=== PATIENT | male | born 1970 | race Caucasian/White ===

== ENCOUNTER 2018-12-30 10:11 | Emergency (ER) | payer OTHER ==
[~2018-12-30] VITALS: Ht 170.2 cm; Wt 86.4 kg
[2018-12-30] MEDS ORDERED: AUGMENTIN 875 MG TAB PO ONE (10:30)
[2018-12-30] MEDS ORDERED: IBUP80TA PO (10:36)
[2018-12-30] MEDS ORDERED: AUGM875T28 PO (10:36)
[2018-12-30] MEDS ORDERED: ADACEL/BOOSTRIX VACCINE (DIPHTH/PERTUSS/ACELL/TETANUS)0.5ML SYR (90715) IM ONE (10:45)
[2018-12-30] MEDS ORDERED: RABIES VACCINE HUMAN 2.5 INTERNATIONAL UNITS/ML VIAL (90675) IM ONE (11:30)
[2018-12-30 12:03] VITALS: BP 128/95
== END 2018-12-30 12:04 | disposition home or self-care (01) ==
LOC: M ED 10:11
DX: S61.452A Open bite of left hand, initial encounter (principal); W54.0XXA Bitten by dog, initial encounter; Y92.410 Unspecified street and highway as the place of occurrence of the external cause; F90.9 Attention-deficit hyperactivity disorder, unspecified type

== ENCOUNTER 2020-10-02 03:55 | Emergency (ER) | payer OTHER ==
[~2020-10-02 03:55] MED LIST: AUGM875T28 PO; IBUP80TA PO
[2020-10-02 05:24] LABS: BASO % 1.1 % (0.0-1.0); HEMATOCRIT 44.5 % (42.0-52.0); HEMOGLOBIN 15.1 g/dl (13.5-17.5); LYMPH # 0.9 10^3/uL (1.5-5.0); LYMPH % 25.5 % (24.0-44.0); MEAN CORPUSCULAR HEMOGLOBIN 30.6 pg (27.0-33.0); MEAN CORPUSCULAR HGB CONC 33.9 g/dl (32.0-36.5); MEAN CORPUSCULAR VOLUME 90.3 fl (80.0-96.0); MONO # 0.5 10^3/uL (0.0-0.8); MONO % 14.7 % (0.0-5.0); NEUTROPHILS # 2.1 10^3/uL (1.5-8.5); NEUTROPHILS % 58.1 % (36.0-66.0); PLATELET COUNT, AUTOMATED 211 10^3/uL (150-450); RED BLOOD COUNT 4.93 10^6/uL (4.30-6.10); WHITE BLOOD COUNT 3.6 10^3/uL (4.0-10.0)
--- NOTE | 2020-10-02 05:46 | REPVR ---
PROCEDURE INFORMATION: Exam: XR Chest, 1 View Exam date and time: 10/02/2020 4:40 AM Age: 50 years old Clinical indication: Other: Covid +; Additional info: Covid 19 TECHNIQUE: Imaging protocol: XR of the chest Views: 1 view. COMPARISON: No relevant prior studies available. FINDINGS: Lungs: Unremarkable. No consolidation. Pleural space: Unremarkable. No pleural effusion. No pneumothorax. Heart/Mediastinum: Unremarkable. No cardiomegaly. Bones/joints: Unremarkable. IMPRESSION: No acute findings. Electronically signed by: Tani Cardenas On 10/02/2020 05:46:58 AM
[2020-10-02 05:52] LABS: ALBUMIN 3.7 GM/DL (3.2-5.2); ALT/SGPT 38 U/L (12-78); BILIRUBIN,TOTAL 0.4 MG/DL (0.2-1.0); BLOOD UREA NITROGEN 15 MG/DL (7-18); C REACTIVE PROTEIN QUANTITATIV 0.32 MG/DL (0.00-0.30); CALCIUM LEVEL 7.7 MG/DL (8.5-10.1); CARBON DIOXIDE LEVEL 27 MEQ/L (21-32); CHLORIDE LEVEL 105 MEQ/L (98-107); CK-MB VALUE MASS 1.1 NG/ML (<3.6); CPK CREATINE PHOSPHOKINASE 123 U/L (39-308); CREATININE FOR GFR 0.93 MG/DL (0.70-1.30); FERRITIN 284 NG/ML (26-388); GLOMERULAR FILTRATION RATE > 60.0 (>60); GLUCOSE, FASTING 119 MG/DL (70-100); LDH LACTATE DEHYDROGENASE 157 U/L (87-241); MB/CK RELATIVE INDEX 0.89 (< OR =4); POTASSIUM SERUM 3.7 MEQ/L (3.5-5.1); SODIUM LEVEL 135 MEQ/L (136-145); TOTAL PROTEIN 6.7 GM/DL (6.4-8.2); TROPONIN I < 0.02 NG/ML (< 0.10)
[2020-10-02] MEDS ORDERED: ISOVUE-370 76% 100ML VIAL As Ordered ONE (05:54)
--- NOTE | 2020-10-02 07:07 | REPVR ---
PROCEDURE INFORMATION: Exam: CT Angiography Chest With Contrast Exam date and time: 10/02/2020 5:49 AM Age: 50 years old Clinical indication: Shortness of breath; Additional info: Covid, shortness of breath, elevated ddimer TECHNIQUE: Imaging protocol: Computed tomographic angiography of the chest with intravenous contrast. 3D rendering (Not supervised by radiologist): MIP and/or 3D reconstructed images were created by the technologist. Radiation optimization: All CT scans at this facility use at least one of these dose optimization techniques: automated exposure control; mA and/or kV adjustment per patient size (includes targeted exams where dose is matched to clinical indication); or iterative reconstruction. Contrast material: ISO; Contrast volume: 75 ml; Contrast route: INTRAVENOUS (IV); COMPARISON: CR PORTABLE CHEST X-RAY 10/02/2020 5:02 AM FINDINGS: Pulmonary arteries: Normal. No pulmonary emboli. Aorta: Unremarkable. No aortic aneurysm. No aortic dissection. Lungs: Bilateral dependent atelectasis. Pleural space: Unremarkable. No pneumothorax. No pleural effusion. Heart: Unremarkable. No cardiomegaly. No pericardial effusion. Lymph nodes: Unremarkable. No enlarged lymph nodes. Liver: Left hepatic lobe cyst and additional scattered subcentimeter indeterminate low-attenuation liver lesions, too small to characterize. Bones/joints: Age-indeterminate mild anterior wedge compression deformities of T3 and T4. Soft tissues: Unremarkable. IMPRESSION: No acute pulmonary embolic disease. Electronically signed by: Tani Cardenas On 10/02/2020 07:08:01 AM
[2020-10-02 08:34] VITALS: BP 142/94
== END 2020-10-02 08:53 | disposition home or self-care (01) ==
LOC: M ED 03:55
DX: U07.1 COVID-19 (principal); R45.1 Restlessness and agitation; R06.02 Shortness of breath; T50.905A Adverse effect of unspecified drugs, medicaments and biological substances, initial encounter; Y92.098 Other place in other non-institutional residence as the place of occurrence of the external cause; F43.10 Post-traumatic stress disorder, unspecified
CPT/HCPCS: 71045; 71275; 80053; 82550; 82553; 82728; 83605; 83615; 84484; 85025; 85379; 86140; 99284; Q9967

== ENCOUNTER → 2021-04-15 | Outpatient (CLI) | payer OTHER ==
[2021-04-15 17:21] LABS: FREE T4 1.1 NG/DL (0.76-1.46); THYROID STIMULATING HORMONE 2.36 uIU/ML (0.358-3.740)
== END ==
LOC: M LAB 15:37
PROVIDERS: ATTEND Internal Medicine Gastroenterology
DX: R19.7 Diarrhea, unspecified (principal)

== ENCOUNTER 2021-07-24 08:30 | Day surgery (SDC) | payer OTHER ==
[~2021-07-24] VITALS: Ht 170.2 cm; Wt 89.5 kg
[~2021-07-24 08:30] MED LIST changes: +LOSA100T8; +NS 1,000 ML IV ONE
--- OUTSIDE RECORDS SUMMARY | 2021-07-24 08:33 | CCD | Continuity of Care Document ---
Author Author Martin TAYLOR MD Organization Unknown Address [address] [place] [address] Phone [phone] Care Team Providers Care Voice Professor Name Role Phone Martín Espinoza M.D. AUTM [phone] Problems Description No Active Problems Social History Type Date Description Comments Sex Unknown ETOH Use 8 A Week Tobacco Use Start: Unknown Non Smoker Allergies, Adverse Reactions, Alerts Description No Known Drug Allergies Medications Active Medications SIG Qnty Indications Ordering Provide r Date Sutab [id number] Tablets as directed- see office colon prep instructions 24tabs R19.7 Gail Taylor MD 04/15/2021 Milk Of Magnesia 1200mg/15ML Suspe nsion take 45 milliliters by mouth as directed on colonoscopy prep sheet. 355ml R19.7 Gail Taylor MD 04/15/2021 Losartan Potassium/Hydrochlorothiazide 50-12.5mg Tablets daily Unknown Prilosec OTC 20mg Tablets DR prn Unknown Imodium A-D 2mg Capsules prn Unknown Immunizations Description No Information Available Vital Signs Date Vital Result Comment 04/15/2021 2:48pm BP Systolic 124 mmHg BP Diastolic 84 mmHg Height 67 inches 5'7" Weight 200.00 lb BMI (Body Mass Index) 31.3 kg/m2 [place] Body Weight 148 lb Weight 90.720 kg BSA (Body Surface Area) 2.02 m2 Results Test Acquired Date Facility Test Result H/L Range Note Laboratory test finding 04/15/2021 [facility] Main Lab [address] [place] [address] [phone] Tissue Transglutaminase IgA <2 U/mL Normal 0-3 1 Immunoglobulin A 295.0 mg/dL Normal 70-400 FT4&TSH Panel 04/15/[address] [facility] Main Lab [address] [place] [id number] [phone] Thyroid Stimulating Hormone 2.360 uIU/ML Normal 0. 358-3.740 Free T4 1.10 ng/dL Normal 0.76-1.46 2 Gastrointestinal (GI) Panel 04/15/2021 [facility] Lab [address] [place] [address] [phone] Gastrointestinal (GI) Panel This Gastrointes <SEE NOTE > 3 Laboratory test finding 04/15/2021 [facility] Main Lab [address] [place] [address] [phone] Pancreatic Elastase Stool 277 Normal >200 4 Calprotectin Stool 50 ug/g Normal 0-120 5, 6 1 Negative 0 - 3 Weak Positive 4 - 10 Positive >10 . Tissue Transglutaminase (tTG) has been identified as the endomysial antigen. Studies have demonstr- ated that endomysial IgA antibodies have over 99% specificity for gluten sensitive enteropathy. Performed at: - [facility] [id number] Companion: Shraddha Paulino MD, Phone: [phone] 04/19/21 (TueApr 19) 06:31 PM GAIL wheeler 3 This Gastrointestinal PCR Pa conner detects the following bacteria, parasites and viruses: Campylobacter (jejuni, coli and upsaliensis), Clostridium difficile (toxin A/B), Plesiomonas shigelloides, Salmonella, Yersinia enterocolitica, Vibrio (parahaemolyticus, vulnificus and cholerae), Vibrio clolerae, Enteroaggregative E. coli (EAEC), Enteropathogenis E. coli (EPEC), Enterotoxigenic E. coli (ETEC) it/st, Shiga-like producing E. coli (STEC) stx1/stc2, E.coli O157, Shigella/Enteroinvasive E. coli (EIEC), Cryptosporidium, Cyclospora cayetanensis, Entamoeba histolytica, Giardia lamblia, Adenovirus F 40/41, Astrovirus, Norovirus GI/GII, Rotavirus A and Sapovirus (I, II, IV, V). One negative specimen does not rule out the possibility of a parasitic infection. NEGATIVE by MULTIPLEXED NUCLEIC ACID PCR 4 Result Units: ug Elast./g Severe Pancreatic Insufficiency: <100 Moderate Pancreatic Insufficiency: 100 - 200 Normal: >200 5 Concentration Interpreta tion Follow-Up <16 - 50 ug/g Normal None >50 -120 ug/g Borderline Re-evaluate in 4-6 weeks >120 ug/g Abnormal Repeat as clinically indicated Performed at: [facility] [address] [id number] Companion: Mars Montaño MD, Phone: [phone] 04/29/21 (TueApr 29) 06:47 P Lisa TAYLOR neg/normal Procedures Date Code Description Status 04/15/2021 [address] Office/Outpatient New Low MDM 30 -44 Minutes Completed Medical Devices Description No Information Available Encounters Type Date Location Provider Dx Diagnosis Office Visit 04/15/2021 2:45p [facility] Gail Taylor MD R19.7 Diarrhea, unspecified Assessments Date Code Description Provider 04/15/2021 R19.7 Diarrhea, unspecified Gail fuentes MD Plan of Treatment 04/15/2021 - Gail Taylor MD* R19.7 Diarrhea, unspecified * * New Medication:* Sutab [id number] mg * Milk Of Magnesia 1200 mg/15ML * Comments:* sudden onset diarrhea since september 2020. no blood, no weight loss, no nocturnal symptoms Functional Status Description No Information Available Mental Status Description No Information Available Referrals Refer to Reason for Referral Status Appt Date Gail Taylor M.D. OFFICE CONSULT NEW OR ESTABL ISHED PT. - - 01/13/2021 - 07/12/2021 OFFICE/OUTPATIENT ESTABLISHED MINIMAL - - 01/13/2021 - 01/13/2022 DX: DIARRHEA UNSPECIFIED Scheduled 04/15/2021 [facility], Gastroenterology [address], [address] [place] [address] [phone]
--- OUTSIDE RECORDS SUMMARY | 2021-07-24 08:33 | CCD ---
Author Author [facility] Organization [facility] Address Unknown Phone Unavailable Care Team Providers Care Hand Assembler Name Role Phone AGIL JAMES MD Unavailable Unavailable REINDL, GAIL ALCANTAR Unavailable Unavailable REINDL, GAIL ALCANTAR Unavailable Unavailable ERIKA, GAIL ALCANTAR Unavailable Unavailable ERIKA, GAIL ALCANTAR Unavailable Unavailable ERIKA, GAIL ALCANTAR Unavailable Unavailable ERIAK, GAIL ALCANTAR Unavailable Unavailable ERIKA, GAIL ALCANTAR Unavailable Unavailable ERIKA, GAIL ALCANTAR Unavailable Unavailable ERIKA, GAIL ALCANTAR Unavailable Unavailable ERIKA, GAIL ALCANTAR Unavailable Unavailable ERIKA, GAIL ALCANTAR Unavailable Unavailable ERIKA, GAIL ALCANTAR Unavailable Unavailable REINGAIL BELLO MD Unavailable Unavailable REINGAIL BELLO MD Unavailable Unavailable REINEUGENIA, GAIL ALCANTAR Unavailable Unavailable REINGAIL BELLO MD Unavailable Unavailable REINGAIL BELLO MD Unavailable Unavailable REINGAIL BELLO MD Unavailable Unavailable REINGAIL BELLO MD Unavailable Unavailable REINGAIL BELLO MD Unavailable Unavailable GAIL JAMES MD Unavailable Unavailable GAIL JAMES MD Unavailable Unavailable REINGAIL BELLO MD Unavailable Unavailable REINGAIL BELLO MD Unavailable Unavailable ERIKA, GAIL ALCANTAR Unavailable Unavailable ERIKA, GAIL ALCANTAR Unavailable Unavailable GAIL JAMES MD Unavailable Unavailable GAIL JAMES MD Unavailable Unavailable GAIL JAMES MD Unavailable Unavailable ERIKA, GAIL ALCANTAR Unavailable Unavailable GAIL JAMES MD Unavailable Unavailable GAIL JAMES MD Unavailable Unavailable GAIL JAMES MD Unavailable Unavailable GAIL JAMES MD Unavailable Unavailable GAIL JAMES MD Unavailable Unavailable REINDL, GAIL ALCANTAR Unavailable Unavailable REINDL, GAIL ALCANTAR Unavailable Unavailable REINDL, GAIL ALCANTAR Unavailable Unavailable REINDL, GAIL ALCANTAR Unavailable Unavailable REINDL, GAIL ALCANTAR Unavailable Unavailable REINDL, GAIL ALCANTAR Unavailable Unavailable Flori, Hector Mendez Elyse FACILITIES SPECIALIST-C Unavailable Unavailabl e Flori, Hector W Elyse FACILITIES SPECIALIST-C Unavailable Unavailabl e Flori, Hector W Elyse FACILITIES SPECIALIST-C Unavailable Unavailabl e Flori, Hector W Elyse FACILITIES SPECIALIST-C Unavailable Unavailabl e Flori, Hector W Elyse FACILITIES SPECIALIST-C Unavailable Unavailabl e Flori, Hector W Elyse FACILITIES SPECIALIST-C Unavailable Unavailabl e Flori, Hector W Elyse FACILITIES SPECIALIST-C Unavailable Unavailabl e Flori, Hector W Elyse FACILITIES SPECIALIST-C Unavailable Unavailabl e Flori, Hector W Elyse FACILITIES SPECIALIST-C Unavailable Unavailabl e Flori, Hector W Elyse FACILITIES SPECIALIST-C Unavailable Unavailabl e Flori, Hector W Elyse FACILITIES SPECIALIST-C Unavailable Unavailabl e Flori, Hector W Elyse FACILITIES SPECIALIST-C Unavailable Unavailabl e Flori, Hector W Elyse FACILITIES SPECIALIST-C Unavailable Unavailabl e Flori, Hector W Elyse FACILITIES SPECIALIST-C Unavailable Unavailabl e Flori, Hector W Elyse FACILITIES SPECIALIST-C Unavailable Unavailabl e Flori, Hector W Elyse FACILITIES SPECIALIST-C Unavailable Unavailabl e Flori, Hector W Elyse FACILITIES SPECIALIST-C Unavailable Unavailabl e Flori, Hector W Elyse FACILITIES SPECIALIST-C Unavailable Unavailabl e Flori, Chapincitofrancora W Elyse FACILITIES SPECIALIST-C Unavailable Unavailabl e Flori, Regkris W Elyse FACILITIES SPECIALIST-C Unavailable Unavailabl e Flori, Regkris W Elyse FACILITIES SPECIALIST-C Unavailable Unavailabl e Flori, Regkris W Elyse FACILITIES SPECIALIST-C Unavailable Unavailabl e Flori, Regkris W Elyse FACILITIES SPECIALIST-C Unavailable Unavailabl e Flori, Regkris W Elyse FACILITIES SPECIALIST-C Unavailable Unavailabl e Flori, Reginah W Elyse FACILITIES SPECIALIST-C Unavailable Unavailabl e Flori, Reginah W Elyse FACILITIES SPECIALIST-C Unavailable Unavailabl e Flori, Reginah W Elyse FACILITIES SPECIALIST-C Unavailable Unavailabl e Flori, Reginah W Elyse FACILITIES SPECIALIST-C Unavailable Unavailabl e Flori, Reginah W Elyse FACILITIES SPECIALIST-C Unavailable Unavailabl e Flori, Reginah W Elyse FACILITIES SPECIALIST-C Unavailable Unavailabl e Flori, Reginah W Elyse FACILITIES SPECIALIST-C Unavailable Unavailabl e Flori, Reginah W Elyse FACILITIES SPECIALIST-C Unavailable Unavailabl e TALAVERA, MADYSON Unavailable Unavailable EDGARD, S NUBIA FACILITIES SPECIALIST-C Unavailable Unavailable EDGARD, S NUBIA FACILITIES SPECIALIST-C Unavailable Unavailable EDGARD, S NUBIA FACILITIES SPECIALIST-C Unavailable Unavailable EDGARD, S NUBIA FACILITIES SPECIALIST-C Unavailable Unavailable EDGARD, S NUBIA FACILITIES SPECIALIST-C Unavailable Unavailable EDGARD, S NUBIA FACILITIES SPECIALIST-C Unavailable Unavailable EDGARD, S NUBIA FACILITIES SPECIALIST-C Unavailable Unavailable EDGARD, S NUBIA FACILITIES SPECIALIST-C Unavailable Unavailable EDGARD, S NUBIA FACILITIES SPECIALIST-C Unavailable Unavailable EDGARD, S NUBIA FACILITIES SPECIALIST-C Unavailable Unavailable EDGARD, S NUBIA FACILITIES SPECIALIST-C Unavailable Unavailable EDGARD, S NUBIA FACILITIES SPECIALIST-C Unavailable Unavailable EDGARD, S NUBIA FACILITIES SPECIALIST-C Unavailable Unavailable EDGARD, S NUBIA FACILITIES SPECIALIST-C Unavailable Unavailable LANIE, J ALBAN Unavailable Unavailable Campanaro, Mare Adina PA Unavailable Unavailable Campanaro, Mare Adina PA Unavailable Unavailable Campanaro, Mare Adina PA Unavailable Unavailable Campanaro, Mare Adina PA Unavailable Unavailable Campanaro, Mare Adina PA Unavailable Unavailable Campanaro, Mare Adina PA Unavailable Unavailable Campanaro, Mare Adina PA Unavailable Unavailable Campanaro, Mare Adina PA Unavailable Unavailable Campanaro, Mare Adina PA Unavailable Unavailable Campanaro, Mare Adina PA Unavailable Unavailable Campanaro, Mare Adina PA Unavailable Unavailable Campanaro, Mare Adina PA Unavailable Unavailable Campanaro, Mare Adina PA Unavailable Unavailable Campanaro, Mare Adina PA Unavailable Unavailable Campanaro, Mare Adina PA Unavailable Unavailable Campanaro, Mare Adina PA Unavailable Unavailable Deepthi Lima MELINDA Unavailable Unavailable GARCIA, CLIN[facility] Unavailable Unavailable Re-disclosure Warning The records that you are about to access may contain information from federally-assisted alcohol or drug abuse programs. If such information is present, then the following federally mandated warning applies: This information has been disclosed to you from records protected by federal confidentiality rules (42 CFR part 2). The federal rules prohibit you from making any further disclosure of this information unless further disclosure is expressly permitted by the written consent of the person to whom it pertains or as otherwise permitted by 42 CFR part 2. A general authorization for the release of medical or other information is NOT sufficient for this purpose. The Federal rules restrict any use of the information to criminally investigate or prosecute any alcohol or drug abuse patient.The records that you are about to access may contain highly sensitive health information, the redisclosure of which is protected by Article 27-F of the [facility] Public Health law. If you continue you may have access to information: Regarding HIV / AIDS; Provided by facilities licensed or operated by the [facility] Office of Mental Health; or Provided by the [facility] Office for People With Developmental Disabilities. If such information is present, then the following [facility] mandated warning applies: This information has been disclosed to you from confidential records which are protected by state law. State law prohibits you from making any further disclosure of this information without the specific written consent of the person to whom it pertains, or as otherwise permitted by law. Any unauthorized further disclosure in violation of state law may result in a fine or senior living sentence or both. A general authorization for the release of medical or other information is NOT sufficient authorization for further disc losure. Encounters Encounter Providers Location Date Indications Data Source(s ) Outpatient Attender: GAIL Samuel/Vu/Brett/Darrius bello 04/15/2021 02:45:00 PM EDT [facility] ([facility] Outpatient Attender: Elyse GAMBOA 03/24/2021 08:17:0 [address] [facility] Outpatient [facility] 03/24/2021 12:00:00 AM EDT [facility] ([facility]) Outpatient Attender: Elyse Flori FACILITIES SPECIALIST-C EMERGENCY ROOM-LAB 03/23/2021 09:52:00 AM EDT - 03/23/2021 09:52:[address] [facility] Outpatient Attender: ALBAN SHANUonsultant: CLINIC GARCIA 01/27/2021 06:30:00 PM EDT - 01/27/2021 07:30:[address] [facility] Patient discharged. Outpatient Attender: NUBIA EDGARD FACILITIES SPECIALIST-CConsultant: CLINI C GARCIA 01/02/2021 07:31:00 AM EDT - 01/02/2021 08:31:00 AM EDT [facility] Outpatient Attender: MADYSON BRANHAMonsultant: CLINIC GARCIA 12/31/2020 07:15:00 PM EDT - 12/31/2020 07:25:[address] [facility] Outpatient Attender: Adina Menjivar wilmer 09/30/2020 04:30:00 PM EST [facility] ([facility] Immunizations Vaccine Date Status Description Data Source(s) COVID-19 VACCINE Moderna 06/18/2021 12:00:00 AM EDT completed [facility]IS Vaccine Series Complete: YESThis Data wa s Submitted to [facility] Via [employer]. COVID-19 VACCINE Moderna 05/14/2021 12:00:00 AM EDT completed [facility]SIIS Vaccine Series Complete: NOThis Data was Submitted to [facility] Via [employer]. Medications Medication Brand Name Start Date Product Form Dose Route Admi nistrative Instructions Pharmacy Instructions Status Indications Reaction Description Data Source(s) Sutab Sutab 04/15/2021 12:00:00 AM EDT active [facility] ([facility], ) Magnesium Hydroxide 80 MG/ML Oral Suspension Milk Of Magnesi a 04/15/2021 12:00:00 AM EDT ORAL active M [facility] ([facility], ) Insurance Providers Payer name Policy type / Coverage type Policy ID Covered green party ID Covered green party's relationship to chow Policy Chow Plan Information [employer] [id number] SP [id number] [employer] - O/P [id number] 18 [id number] [employer] [id number] Problems, Conditions, and Diagnoses Code Display Name Description Problem Type Effective Dates Data Source(s) Z02.1 Encounter for pre-employment examination ENCOUNTER FOR PRE-EMPLOYMENT EXAMINATION Diagnosis 03/24/2021 08:17:00 AM EDT [facility] Z02.89 Encounter for other administrative exami nations ENCOUNTER FOR OTHER ADMINISTRATIVE EXAMINATIONS Diagnosis 03/23/2021 09:52:[address] [facility] K760 Fatty (change of) liver, not elsewhere c lassified Fatty (change of) liver, not elsewhere classified Diagnosis 01/27/2021 06:30:00 PM EDT [facility] K7689 Other specified diseases of liver Other specifie d diseases of liver Diagnosis 01/27/2021 06:30:00 PM EDT [facility] K5790 Diverticulosis of intestine, part unspecified, without perforation or abscess without bleeding Diverticulosis of intestine, part unspec ified, without perforation or abscess without bleeding Diagnosis 01/02/2021 07:31:00 AM EDT [facility] R197 Diarrhea, unspecified Diarrhea, unspecified Diagnosis 01/02/2021 07:31:00 AM EDT [facility] R109 Unspecified abdominal pain Unspecified abdominal pain Diagnosis 12/31/2020 07:15:00 PM [facility] Surgeries/Procedures Procedure Description Date Indications Data Source(s) OFFICE OUTPATIENT NEW 30 MINUTES 04/15/2021 12:00:00 A M EDT [facility] ([facility], ) OFFICE OUTPATIENT NEW 45 MINUTES 04/15/2021 12:00:00 A M EDT [facility] ([facility], ) Results ID Date Data Source [id number] 04/15/2021 04:00:00 PM EDT [facility] ([facility], ) Name Value Range Interpretation Code Description Data Ghada rce(s) Supporting Document(s) Free T4 1.10 ng/dL 0.76-1.46 Normal (applies to non-numeric resul ts) [facility] 04/19/21 (TueApr 19) 06:31 PM GAIL STAFFORD ok Thyroid Stimulating Hormone 2.360 uIU/ML 0.358-3.740 Norm al (applies to non- numeric results) [facility] ([facility]) ID Date Data Source [id number] 04/15/2021 04:00:00 PM EDT [facility]) Name Value Range Interpretation Code Description Data Ghada rce(s) Supporting Document(s) Tissue transglutaminase IgA Ab [Units/volume] in Serum Labor atory test result 0-3 Normal (applies to non-numeric results) [facility] ([facility]) Negative 0 - 3 Weak Positive 4 - 10 Positive >10 . Tissue Transglutaminase (tTG) has been identified as the endomysial antigen. Studies have demonstr- ated that endomysial IgA antibodies have over 99% specificity for gluten sensitive enteropathy. Performed at: - [facility] [id number] [place] Worker: Shraddha Paulino MD, Phone: [phone] IgA [Mass/volume] in Serum or Plasma 295.0 mg/dL 70-400 Normal (applies to non- numeric results) [facility]) ID Date Data Source [id number] 04/15/2021 03:10:00 PM EDT [facility] ([facility]) Name Value Range Interpretation Code Description Data Ghada rce(s) Supporting Document(s) Elastase.pancreatic [Mass/mass] in Stool 277 Normal (applies to non-numeric results) [facility] ([facility]) <content>Result Units: ug Elast./g</cont ent>
<content>Severe Pancreatic Insufficiency: <100</content>
<content>Moderate Pancreatic Insufficiency: 100 - 200</content>
<content>Normal: >200</content>
<content></content> Calprotectin [Mass/mass] in Stool 50 ug/g 0-120 Normal (applies to non-numeric results) [facility] ([facility]) <content>Concentration Interpretatio n Follow-Up</content>
<content><16 - 50 ug/g Normal None</content>
<content>>50 -120 ug/g Borderline Re-evaluate in 4-6 weeks</content>
<content>>120 ug/g Abnormal Repeat as clinically</content>
<content>indicated</content>
<content>Performed at: [facility]</content>
<content>[address], [place] [id number]</content>
<content>Slate Worker: Mars Montaño MD, Phone: [phone]</content>
<content></content> ID Date Data Source [id number] 04/15/2021 03:10:00 PM EDT [facility] ([facility], ) Name Value Range Interpretation Code Description Data Ghada rce(s) Supporting Document(s) Gastrointestinal (GI) Panel Laboratory test result [facility] ([facility], ) This Gastrointestinal PCR Panel detects the following bacteria, parasites and viruses: [...] infection. NEGATIVE by MULTIPLEXED NUCLEIC ACID PCR ID Date Data Source [id number] 03/24/2021 08:10:00 AM EDT [facility] Name Value Range Interpretation Code Description Data Ghada rce(s) Supporting Document(s) RUBELLA ANTIBODIES, IGG 3.84 index Immune >0.99 [facility] Non-immu ne <0.90 Equivocal 0.90 - 0.99 Immune >0.99 RUBEOLA AB, IGG 49.2 AU/mL Immune >16.4 [facility] Negativ e <13.5 Equivocal 13.5 - 16.4 Positive > 16.4Presence of antibodies to Rubeola is presumptive evidenceof immunity except when acute infection is suspected. MUMPS ABS, IGG 170.0 AU/mL Immune >10.9 [facility] Negative <9.0 Equivocal 9.0 - 10.9 Positive >10.9A positive result generally indicates past exposure toMumps virus or previous vaccination. ID Date Data Source [id number] 03/24/2021 08:10:00 AM EDT [facility] Name Value Range Interpretation Code Description Data Ghada rce(s) Supporting Document(s) VARICELLA ZOSTER IGG 388 index Immune >165 [facility] Negative <135 Equivocal 135 - 165 Positive >165A positive result generally indicates exposure to thepathogen or administration of specific immunoglobulins,but it is not indication of active infection or stageof disease.Performed at: - [facility] [address] [id number] Director: Shraddha Paulino MD, Phone: [phone] ID Date Data Source [id number] 03/24/2021 08:06:00 AM EDT [facility] Name Value Range Interpretation Code Description Data Ghada rce(s) Supporting Document(s) Rubella Antibodies, IgG 3.84 index Immune >0.99 [facility] Non-immune <0.90 Equivocal 0.90 - 0.99 Immune >0.99 Measles Antibodies, IgG 49.2 AU/mL Immune >16.4 [facility] Negative <13.5 Equivocal 13.5 - 16.4 Positive >16.4 Presence of antibodies to Rubeola is presumptive evidence of immunity except when acute infection is suspected. Mumps Abs, IgG 170.0 AU/mL Immune >10.9 [facility] Negative <9.0 Equivocal 9.0 - 10.9 Positive >10.9 A positive result generally indicates past exposure to Mumps virus or previous vaccination. ID Date Data Source [id number] 03/24/2021 08:06:00 AM EDT [facility] Name Value Range Interpretation Code Description Data Ghada rce(s) Supporting Document(s) Varicella Zoster IgG 388 index Immune >165 [facility] Negative <135 Equivocal 135 - 165 Positive >165 A positive result generally indicates exposure to the pathogen or administration of specific immunoglobulins, but it is not indication of active infection or stage of disease. ID Date Data Source [id number] 01/30/2021 11:18:00 AM EDT [facility] [address] [place] [address] PHONE: [phone] FAX: [phone] Name .................. : JENNIFER Marshall Acct Number.................. : [id number] ROOM. ................. : MR Number ................... : [id number] Stay type ............. : O/P Discharge Date......... ... : 01/27/21 Admit Date ......... : 01/27/21 Admit Phys .................... : LANIE CHRISSIELuz Date of ....... : 1970 Family Phys ................... : UNKNOWN Phone .................. : [phone] Age ................................ : 50 Film# .................. .:[id number] Sex ................................. : M Unsigned transcriptions are preliminary reports and do not represent a medical or legal document HEPATIC [id number] COMPLETE:01/27/21 20:27 ADB 38817 Reason for Exam: Hepatic Cyst HEPATIC ULTRASOUND: INDICATION: Hepatic cyst. FINDINGS: There is increased echogenicity and coarse echotexture of the liver compatible with fatty infiltration. There is a 1.3 x 1.2 x 0.8 cm simple cyst in the right lobe of the liver. The pancreas is not well visualized due to overlying bowel gas. The right kidney is sonographically normal. No gallstones or gallbladder wall thickening. The common bile duct measures 3 mm in diameter. IMPRESSION: 1. Fatty liver. 2. Simple liver cyst. Electronically Reviewed and Signed By Shan Hernandez M.D. , 01/30/21 11:18, IAY Transcribe Initials: DZ , Transcribe Date: 01/28/21 00:38, Dictation Date: Copy for: LANIE Gilmore Copy for: 710 MED REC Page 1 of 1 Name Value Range Interpretation Code Description Data Ghada rce(s) Supporting Document(s) ID Date Data Source [id number] 01/05/2021 09:14:00 AM EDT [facility] [address] [place] [address] PHONE: [phone] FAX: [phone] Name .................. : JENNIFER Marshall Acct Number.................. : [id number] ROOM. ................. : MR Number ................... : [id number] Stay type ............. : O/P Discharge Date......... ... : 01/02/21 Admit Date ......... : 01/02/21 Admit Phys .................... : EDGARD FINLEY Date of ....... : 1970 Family Phys ................... : UNKNOWN Phone .................. : [phone] Age ................................ : 50 Film# .................. .:[id number] Sex ................................. : M Unsigned transcriptions are preliminary reports and do not represent a medical or legal document CT ABD & PELV W/ORAL/IV CONTR [id number] COMPLETE:01/02/21 09:09 BEM 8311 Reason for Exam: diarrhea CT SCAN OF THE ABDOMEN AND PELVIS WITH CONTRAST: INDICATION: Diarrhea. FINDINGS: The lung bases show mild atelectasis. No definite focal infiltrate or consolidation is identified. No discrete nodule is present. The heart appears unremarkable. There are multiple hepatic cysts. The largest is at the left lobe measuring 1.2 cm. The gallbladder appears unremarkable. The pancreas is within normal limits. The spleen is unremarkable. The bilateral adrenal glands appear unremarkable. The bilateral kidneys appear unremarkable. No hydronephrosis or nephrolithiasis is identified. The appendix is visualized an appears unremarkable. Diverticulosis is identified diffusely in the sigmoid colon. No clear evidence of diverticulitis is identified. There is a fat- containing right inguinal hernia. The urinary bladder is grossly unremarkable. No free fluid is identified in the pelvis. IMPRESSION: Hepatic cysts. Fatty infiltration of the liver. Diverticulosis without diverticulitis. Examination is otherwise unremarkable. While performing the above CT examination, radiation dose reduction was accomplished utilizing automated exposure control, adjusting of the mA and kV based on the patient's body size and/or the use of imperative reconstructive techniques. CT dose: 947 mGycm Contrast agent in mL: 75 Isovue 370 Method of administration: Intravenous Examination dictated by MELINDA Witt. Examination was reviewed with Madeleine Alston MD, radiologist at the time of this dictation. Page 1 of 2 [place] [address] PHONE: [phone] FAX: [phone] Name .................. : JENNIFER Marshall Acct Number.................. : [id number] ROOM. ................. : MR Number ................... : [id number] Stay type ............. : O/P Discharge Date......... ... : 01/02/21 Admit Date ......... : 01/02/21 Admit Phys .................... : EDGARD FINLEY Date of ....... : 1970 Family Phys ................... : UNKNOWN Phone .................. : [phone] Age ................................ : 50 Film# .................. .:[id number] Sex ................................. : M Unsigned transcriptions are preliminary reports and do not represent a medical or legal document CT ABD & PELV W/ORAL/IV CONTR [id number] COMPLETE:01/02/21 09:09 BEM 8311 Reason for Exam: diarrhea _ Electronically Reviewed and Signed By Madeleine Alston MD , 01/05/21 09:14, KGG Transcribe Initials: JAZMYN , Transcribe Date: 01/02/21 14:50, Dictation Date: Copy for: EDGARD Driver Copy for: 710 MED REC Page 2 of 2 Name Value Range Interpretation Code Description Data Ghada rce(s) Supporting Document(s) ID Date Data Source [id number] 12/31/2020 08:19:00 PM EDT [facility] Name Value Range Interpretation Code Description Data Ghada rce(s) Supporting Document(s) RENAL PANEL [facility] RENAL FUNCTION PANEL Sodium [Moles/volume] in Serum or Plasma 135 mEq/L 134 - 153 [facility] Potassium [Moles/volume] in Serum or Plasma 4.4 mEq/L 3.6 - 5.0 [facility] Chloride [Moles/volume] in Serum or Plasma 98 mEq/L 98 - 107 [facility] Carbon dioxide, total [Moles/volume] in Serum or Plasma 27 MEQ/L 22 - 30 [facility] Glucose [Mass/volume] in Serum or Plasma 120 MG/DL 70 - 99 H [facility] BUN 16 MG/DL 7 - 21 [facility] Creatinine [Mass/volume] in Serum or Plasma 1.1 MG/DL 0.7 - 1.5 [facility] BUN/CREAT 15 8 - 27 [facility] Albumin [Mass/volume] in Serum or Plasma 4.8 G/DL 3.9 - 5.0 [facility] Phosphate [Mass/volume] in Serum or Plasma 3.4 MG/DL 2.5 - 4.5 [facility] Calcium [Mass/volume] in Serum or Plasma 9.9 MG/DL 8.4 - 10.2 [facility] Anion gap 3 in Serum or Plasma 10.0 mmol/L 8.0 - 16.0 [facility] AGE 50 yrs [facility] NON-AA GFR >60 mL/min [facility] AFR AMER GFR >60 mL/min [facility] Male GFR Interp rentation 20-49 yrs >60 mL/min Normal 50-59 yrs >56 mL/min Normal 60-69 yrs >49 mL/min Normal 70-79yrs >42 mL/min Normal 80 and above >35 mL/min Normal Female GFR Interpretation 20-39 yrs >60 mL/min Normal 40-49 yrs >58 mL/min Normal 50-59 yrs >51 mL/min Normal 60-69 yrs >45 mL/min Normal 70-79 yrs >39 mL/min Normal 80 and above >32 mL/min Normal ID Date Data Source [id number] 10/13/2020 12:00:00 AM EST [facility] Name Value Range Interpretation Code Description Data Ghada rce(s) Supporting Document(s) SARS coronavirus 2 Ag Negative [facility] This lab was ordered by [facility] and reported by [facility]. ID Date Data Source [id number] 09/30/2020 12:00:00 AM EST [facility] Name Value Range Interpretation Code Description Data Ghada rce(s) Supporting Document(s) SARS-CoV2 Rapid Antigen [facility] This lab was reported by [facility] re. ID Date Data Source [id number] 10/08/2020 12:00:00 AM EST [facility] Name Value Range Interpretation Code Description Data Ghada rce(s) Supporting Document(s) SARS coronavirus 2 RNA [Presence] in Res piratory specimen by ANUP with probe detection POSITIVE [facility] This lab was ordered by [facility] and reported by [facility]. ID Date Data Source [id number] 10/08/2020 12:00:00 AM EST [facility] Name Value Range Interpretation Code Description Data Ghada rce(s) Supporting Document(s) Carestart Rapid COVID Antigen Test Positive [facility] Procedure Social History Code Duration Value Status Description Data Source(s ) Smoking 03/24/2021 12:00:00 AM EDT Never Smoker completed Never S sunny eCW1 ([facility]) Vital Signs ID Date Data Source UNK Name Value Range Interpretation Code Description Data Source(s) Mcintyre body weight 148 [lb_av] 148 [lb_av] MEDEN T ([facility], ) Systolic blood pressure 124 mm[Hg] 124 mm[Hg] M EDENT ([facility], ) Diastolic blood pressure 84 mm[Hg] 84 mm[Hg] MEDENT ([facility], ) Body height 67 [in_i] 67 [in_i] MEDENT ([facility], ) 5'7" Body weight 200.00 [lb_av] 200.00 [lb_av] MEDEN T ([facility], ) Body mass index (BMI) [Ratio] 31.3 kg/m2 31.3 k g/m2 MEDENT ([facility]) Body weight 90.720 kg 90.720 kg [facility] ([facility]) Body surface area Derived from formula 2.02 m2 2.02 m2 [facility] ([facility]) Body height 67 [in_i] 67 [in_i] eCW1 ([facility]) Body weight 185 [lb_av] 185 [lb_av] eCW1 ([facility]) Body mass index (BMI) [Ratio] 28.97 kg/m2 28.97 kg/m2 eCW1 ([facility]) Body temperature 97.7 [degF] 97.7 [degF] eCW1 ( [facility]) Heart rate 71 /min 71 /min eCW1 ([facility]) Respiratory rate 16 /min 16 /min eCW1 ([facility]) Oxygen saturation in Arterial blood by Pulse oximetry 98 % 98 % eCW1 ([facility]) Systolic blood pressure 126 mm[Hg] 126 mm[Hg] M EDENT ([facility]) Diastolic blood pressure 93 mm[Hg] 93 mm[Hg] MEDENT ([facility]) Heart rate 99 /min 99 /min MEDENT ([facility]) Respiratory rate 14 /min 14 /min MEDENT ( [facility]) Oxygen saturation in Arterial blood by Pulse oximetry 98 % 98 % MEDENT ([facility]) Body temperature 98.6 [degF] 98.6 [degF] MEDENT ([facility]) Body weight 190.00 [lb_av] 190.00 [lb_av] MEDEN T ([facility])
[2021-07-24] MEDS ORDERED: LIDOCAINE 2% 100MG/5ML SDV (FOR ANES.) As Ordered ONE (09:14)
[2021-07-24] MEDS ORDERED: propofoL 200 MG/20 ML VIAL As Ordered ONE (09:14)
--- NOTE | 2021-07-24 10:33 | ROOR ---
Patient Name: Martin Mansfield Procedure Date: 07/24/2021 10:07 AM Date of : 1970 Age: 51 Room: [facility] Gender: Male Note Status: Finalized Procedure: Colonoscopy Indications: Clinically significant diarrhea of unexplained origin Providers: Hernan Taylor MD Referring MD: JOSE GARCIA MD Requesting Provider: Medicines: Monitored Anesthesia Care Complications: No immediate complications. Procedure: Pre-Anesthesia Assessment: - The heart rate, respiratory rate, oxygen saturations, blood pressure, adequacy of pulmonary ventilation, and response to care were monitored throughout the procedure. The Colonoscope was introduced through the anus and advanced to 10 cm into the ileum. The colonoscopy was performed without difficulty. The patient tolerated the procedure well. The quality of the bowel preparation was good. Findings: The perianal and digital rectal examinations were normal. Mild sigmoid diverticulosis and small internal hemorrhoids. Anal papilla(e) were hypertrophied. The colon otherwise appeared normal. The terminal ileum appeared normal. Estimated blood loss was minimal. Biopsies for histology were taken with a cold forceps from the entire colon for evaluation of microscopic colitis. Impression: - Mild sigmoid diverticulosis and small internal hemorrhoids. - The entire examined colon is otherwise normal. - The examined portion of the ileum was normal. - Biopsies were taken with a cold forceps from the entire colon for evaluation of microscopic colitis. Recommendation: - Imodium 1 tablet PO PRN after loose bowel movement. - Telephone endoscopist for pathology results in 2 weeks. Procedure Code(s): --- Professional --- 22789, Colonoscopy, flexible; with biopsy, single or multiple Diagnosis Code(s): --- Professional --- R19.7, Diarrhea, unspecified CPT copyright 2019 [employer]. All rights reserved. The codes documented in this report are preliminary and upon health safety specialist review may be revised to meet current compliance requirements. Hernan Taylor MD Hernan Taylor MD 07/24/2021 10:33:22 AM Electronically signed by Hernan Taylor MD Number of Addenda: 0 Note Initiated On: 07/24/2021 10:07 AM Estimated Blood Loss: Estimated blood loss: none.
[2021-07-24 10:50] VITALS: BP 157/87
== END 2021-07-24 10:59 | disposition home or self-care (01) ==
LOC: M OPP 08:30
PROVIDERS: ATTEND Internal Medicine Gastroenterology
DX: R19.7 Diarrhea, unspecified (principal); K57.30 Diverticulosis of large intestine without perforation or abscess without bleeding; K64.8 Other hemorrhoids; K21.9 Gastro-esophageal reflux disease without esophagitis; K63.89 Other specified diseases of intestine; Z79.899 Other long term (current) drug therapy

== ENCOUNTER → 2022-06-04 | Outpatient (CLI) | payer OTHER ==
[~2022-06-04] MED LIST changes: -NS 1,000 ML IV ONE
== END ==
LOC: M WUC 14:26
PROVIDERS: ATTEND Physician Assistant
DX: M77.11 Lateral epicondylitis, right elbow (principal)